=== PATIENT | female | born 1980 | race Caucasian/White ===

== ENCOUNTER 2021-02-04 12:07 | Emergency (ER) | payer BC ==
[~2021-02-04] VITALS: Ht 167.6 cm; Wt 81.8 kg
[~2021-02-04 12:07] MED LIST: AMITRIPTYLINE H25 M1 PO; ATENOLOL; ATENOLOL25 MG PO; ATENOLOL50 MG PO; BENADRYL 50MG C50 MG PO; LORATADINE10 MG PO; MAXALT10 MG; METFORMIN500 MG PO; MOTRIN 800800 MG/TAB PO; NEXIUM 20MG CAP20 MG PO; PERCOCET 5/321 UDTAB PO; PRENATAL VITAMI1 TA5 PO; PRENATAL1 TA1 PO; PROTONIX40 MG PO; SINGULAIR PO; SONATA 10MG10 MG; TYLENOL PM 5001 CAP PO; ZANTAC; ZOLOFT 50MG50 MG PO
[2021-02-04 12:15] VITALS: TEMP 98.7
[2021-02-04 12:39] LABS: BASO # 0.1 (0.0-0.2); EOS # 0.2 (0.0-0.7); EOS % 1.7 % (0-4.0); GRAN # 6.7 (1.4-6.5); GRAN % 71.2 % (42.2-75.2); HEMATOCRIT 45.7 % (37.0-47.0); HEMOGLOBIN 15.4 g/dl (12.5-16.0); LYMPH # 1.9 (1.2-3.4); LYMPH % 20.3 % (20.0-51.0); MEAN CELL VOLUME 89 fl (80.0-100.0); MEAN CORPUSCULAR HEMOGLOBIN 30 pg (27.0-31.0); MEAN CORPUSCULAR HGB CONC 34 g/dl (33.0-37.0); MEAN PLATELET VOLUME 10.2 fl (7.4-10.4); MONO # 0.5 (0.1-0.6); MONO % 5.3 % (1.7-9.3); PLATELET COUNT 327 K/mm3 (130-400); RED BLOOD COUNT 5.16 M/mm3 (4.10-5.30); REDCELL DISTRIBUTION WIDTH-CV 12.4 % (11.5-14.5)
[2021-02-04 12:51] LABS: ALANINE AMINOTRANSFERASE 19 U/L (4-34); ALBUMIN 4.8 gm/dL (3.5-5.0); ALKALINE PHOSPHATASE 75 U/L (50-136); ANION GAP 10 mmol/L (7-16); AST,SGOT 24 U/L (15-37); BILIRUBIN,TOTAL 0.5 mg/dL (0.0-1.0); BLOOD UREA NITROGEN 16 mg/dL (7-17); C-REACTIVE PROTEIN 1.3 mg/dL (0.0-0.9); CALCIUM 9.3 mg/dL (8.4-10.2); CARBON DIOXIDE 28 mmol/L (22-30); CHLORIDE 99 mmol/L (98-107); CREATININE, serum 0.95 (0.52-1.25); GLUCOSE 102 mg/dL (74-106); LIPASE 64 U/L (23-300); POTASSIUM 3.7 mmol/L (3.4-5.0); SODIUM 137 mmol/L (137-145); TOTAL PROTEIN 8.1 gm/dL (6.4-8.2)
[2021-02-04 13:00] LABS: TROPONIN-I < 0.012 ng/mL (0.000-0.035)
[2021-02-04 13:16] LABS: COLLECTION METHOD CLEAN CATCH
[2021-02-04 13:22] LABS: PH 8 (5-8); SQUAMOUS EPITHELIAL 0-2 /hpf; URINE APPEARANCE Clear; URINE BACTERIA Rare /hpf; URINE BILIRUBIN Negative (NEGATIVE); URINE BLOOD Negative (NEGATIVE); URINE COLOR Straw; URINE GLUCOSE Negative (NEGATIVE); URINE KETONE Negative (NEGATIVE); URINE LEUKOCYTE ESTERASE Negative (NEGATIVE); URINE NITRATE Negative (NEGATIVE); URINE PROTEIN(semi-quant) Negative (NEGATIVE); URINE RBC 0-2 /hpf; URINE UROBILINOGEN Negative (NEGATIVE)
[2021-02-04 16:10] VITALS: BP 162/100; PULSE 89
== END 2021-02-04 16:15 | disposition home or self-care (01) ==
LOC: COL.ER 12:07
PROVIDERS: Nurse Practitioner Primary Care
DX: I10 Essential (primary) hypertension (principal); R53.81 Other malaise; R10.9 Unspecified abdominal pain; K21.9 Gastro-esophageal reflux disease without esophagitis
CPT/HCPCS: J7030

== ENCOUNTER → 2021-04-25 | Outpatient (CLI) | payer BC | LOC: COL.RAD 11:44 | DX: I70.1 Atherosclerosis of renal artery (principal) | CPT/HCPCS: A9562; J1940 ==

== ENCOUNTER → 2021-12-06 | Outpatient (CLI) | payer BC | LOC: MC.RAD 14:19 | DX: Z12.31 Encounter for screening mammogram for malignant neoplasm of breast (principal) ==

== ENCOUNTER → 2023-02-20 | Outpatient (CLI) | payer BC | LOC: MC.RAD 08:27 | DX: Z12.31 Encounter for screening mammogram for malignant neoplasm of breast (principal) ==

== ENCOUNTER → 2023-03-14 | Outpatient (CLI) | payer BC | LOC: COL.RAD 07:23 | DX: R10.2 Pelvic and perineal pain (principal); Z90.710 Acquired absence of both cervix and uterus ==